=== PATIENT | female | born 1965 | race Caucasian/White ===

== ENCOUNTER 2017-11-21 23:02 | Emergency (ER) | payer MEDICARE, BC ==
[~2017-11-21] VITALS: Ht 162.6 cm; Wt 72.7 kg
[~2017-11-21 23:02] MED LIST: ALPR-624 PO; CYCL-1 PO; DIPH25CA6 PO; LISI40TA4 PO; SERT50TA PO
[2017-11-22] LABS: BASOPHILS % (AUTO) 0.5 % (0-1); EOSINOPHILS # (AUTO) 0.2 X10'3 (0-0.9); HEMATOCRIT 44.5 % (35.0-45.0); HEMOGLOBIN 15.4 g/dl (12.0-16.0); LYMPHOCYTES # (AUTO) 2.7 X10'3 (1.1-4.8); LYMPHOCYTES % (AUTO) 33.3 % (21-51); MEAN CORPUSCULAR HGB CONC 34.7 % (33.0-36.5); MEAN CORPUSCULAR VOLUME 92.3 FL (78-98); MEAN PLATELET VOLUME 8.3 FL (7.4-10.4); MONOCYTES # (AUTO) 0.5 X10'3 (0-0.9); MONOCYTES % (AUTO) 5.7 % (2-12); NEUTROPHILS # (AUTO) 4.8 X10'3 (1.8-7.7); NEUTROPHILS % (AUTO) 58.5 % (42-75); PLATELET COUNT 229 X10'3 (140-440); RED BLOOD COUNT 4.82 X10'6 (4.20-5.60); RED CELL DISTRIBUTION WIDTH 13.3 % (11.5-14.5); WHITE BLOOD COUNT 8.2 X10'3 (4.5-11.0)
[2017-11-22 00:16] LABS: ALANINE AMINOTRANSFERASE 29 U/L (12-78); ALBUMIN 3.9 G/DL (3.4-5.0); ALKALINE PHOSPHATASE 83 IU/L (46-116); ANION GAP 9 (8-16); ASPARTATE AMINO TRANSFERASE 19 U/L (10-37); BILIRUBIN,TOTAL 0.5 MG/DL (0.1-1.0); BLOOD UREA NITROGEN 16 MG/DL (7-18); BUN/CREATININE RATIO 20.3 (6.6-38.0); CALCIUM 8.8 MG/DL (8.5-10.1); CHLORIDE 107 MMOL/L (99-107); CREATININE 0.79 MG/DL (0.40-0.90); GLUCOSE 67 MG/DL (70-104); POTASSIUM 3.6 MMOL/L (3.5-5.1); SODIUM 145 MMOL/L (135-145); TOTAL CARBON DIOXIDE 28.6 MMOL/L (24-32); TOTAL PROTEIN 7.7 G/DL (6.4-8.2); eGFR 76 ML/MIN
[2017-11-22] MEDS ORDERED: ondansetron/PF 4mg/2ml inj IV ONE (00:45)
[2017-11-22] MEDS ORDERED: morphine 4 MG/ML inj SYRINge IV ONE (00:45)
[2017-11-22 01:02] LABS: ETHANOL 0.215 GM/DL (0.0-0.010)
[2017-11-22 02:32] VITALS: BP 127/60
== END 2017-11-22 02:34 | disposition home or self-care (01) ==
LOC: ER 23:02
DX: F10.129 Alcohol abuse with intoxication, unspecified (principal); R10.30 Lower abdominal pain, unspecified; F32.9 Major depressive disorder, single episode, unspecified; F17.200 Nicotine dependence, unspecified, uncomplicated; G89.29 Other chronic pain; I10 Essential (primary) hypertension; Z88.0 Allergy status to penicillin; Z79.899 Other long term (current) drug therapy; Z90.710 Acquired absence of both cervix and uterus; Y90.9 Presence of alcohol in blood, level not specified
CPT/HCPCS: 36415; 74176; 80053; 80320; 85025; 85610; 93005; 96374; 96375; 99285; J2270; J2405

== ENCOUNTER 2017-12-04 13:42 | Emergency (ER) | payer MEDICARE, OTHER ==
[~2017-12-04] VITALS: Ht 160 cm; Wt 69.4 kg
[2017-12-04 15:07] VITALS: BP 134/75
[2017-12-04] MEDS ORDERED: HYDROcodone/acetaminophen 10/325mg tab PO ONE (15:30)
[2017-12-04] MEDS ORDERED: HYDR-565 PO (15:49)
== END 2017-12-04 16:05 | disposition home or self-care (01) ==
LOC: ER 13:43
DX: S20.211A Contusion of right front wall of thorax, initial encounter (principal); I10 Essential (primary) hypertension; G89.29 Other chronic pain; Z88.0 Allergy status to penicillin; Z88.5 Allergy status to narcotic agent; Z79.899 Other long term (current) drug therapy; W22.8XXA Striking against or struck by other objects, initial encounter; Y93.89 Activity, other specified; Y92.89 Other specified places as the place of occurrence of the external cause; Y99.8 Other external cause status
CPT/HCPCS: 71045; 99284

== ENCOUNTER 2018-01-03 17:13 | Emergency (ER) | payer MEDICARE, OTHER ==
[~2018-01-03] VITALS: Ht 162.6 cm; Wt 54.5 kg
[~2018-01-03 17:13] MED LIST changes: +DICL50TA8 PO; +HYDR-565 PO
[2018-01-03] MEDS ORDERED: ketorolac trometh inj. 60 MG/2 ML VIAL IM ONE (18:05)
[2018-01-03 19:01] VITALS: BP 108/61
== END 2018-01-03 19:08 | disposition home or self-care (01) ==
LOC: ER 17:13
DX: S22.31XA Fracture of one rib, right side, initial encounter for closed fracture (principal); S20.211A Contusion of right front wall of thorax, initial encounter; I10 Essential (primary) hypertension; G89.29 Other chronic pain; Z88.0 Allergy status to penicillin; Z88.5 Allergy status to narcotic agent; Z79.899 Other long term (current) drug therapy; X58.XXXA Exposure to other specified factors, initial encounter; Y93.01 Activity, walking, marching and hiking; Y92.89 Other specified places as the place of occurrence of the external cause; Y99.8 Other external cause status
CPT/HCPCS: 71045; 96372; 99283; J1885

== ENCOUNTER 2018-01-25 02:21 | Emergency (ER) | payer MEDICARE, OTHER ==
[~2018-01-25] VITALS: Ht 162.6 cm; Wt 75.0 kg
[~2018-01-25 02:21] MED LIST changes: -HYDR-565 PO
[2018-01-25] MEDS ORDERED: ESCITALOPRAM 10MG TABLETS (02:43)
[2018-01-25] MEDS ORDERED: ALPRAZOLAM 2 MG (02:43)
[2018-01-25] MEDS ORDERED: HCTZ (02:43)
[2018-01-25] MEDS ORDERED: LISINOP (02:43)
[2018-01-25] MEDS ORDERED: ondansetron/PF 4mg/2ml inj IM ONE (03:00)
[2018-01-25] MEDS ORDERED: morphine 4 MG/ML inj SYRINge IM ONE (03:00)
[2018-01-25] MEDS ORDERED: ketorolac trometh inj. 60 MG/2 ML VIAL IM ONE (03:00)
[2018-01-25 04:06] VITALS: BP 95/60
== END 2018-01-25 04:09 | disposition home or self-care (01) ==
LOC: ER 02:22
DX: M62.830 Muscle spasm of back (principal); G89.29 Other chronic pain; I10 Essential (primary) hypertension; Z90.710 Acquired absence of both cervix and uterus; Z88.0 Allergy status to penicillin; Z88.5 Allergy status to narcotic agent; Z79.899 Other long term (current) drug therapy
CPT/HCPCS: 96372; 99284; J1885; J2270; J2405

== ENCOUNTER 2018-02-09 22:44 | Emergency (ER) | payer MEDICARE, OTHER ==
[~2018-02-09] VITALS: Ht 162.6 cm; Wt 60.5 kg
[~2018-02-09 22:44] MED LIST changes: +ALPRAZOLAM 2 MG; +ESCITALOPRAM 10MG TABLETS; +HCTZ; +LISINOP
[2018-02-09 22:59] VITALS: BP 100/47
[2018-02-09] MEDS ORDERED: orphenadrine citrate 60mg/2ml inj. IM ONE (23:40)
[2018-02-09] MEDS ORDERED: ketorolac trometh inj. 60 MG/2 ML VIAL IM ONE (23:40)
== END 2018-02-10 00:11 | disposition home or self-care (01) ==
LOC: ER 22:45
DX: S39.012D Strain of muscle, fascia and tendon of lower back, subsequent encounter (principal); M62.830 Muscle spasm of back; F10.129 Alcohol abuse with intoxication, unspecified; I10 Essential (primary) hypertension; G89.29 Other chronic pain; Z90.710 Acquired absence of both cervix and uterus; Z88.0 Allergy status to penicillin; Z88.5 Allergy status to narcotic agent; Z79.899 Other long term (current) drug therapy; Y90.9 Presence of alcohol in blood, level not specified; X58.XXXD Exposure to other specified factors, subsequent encounter
CPT/HCPCS: 96372; 99284; J1885; J2360

== ENCOUNTER 2018-02-12 20:05 | Emergency (ER) | payer MEDICARE, OTHER ==
[~2018-02-12] VITALS: Ht 167.6 cm; Wt 75.0 kg
[2018-02-12] MEDS ORDERED: NAPR-56 PO (21:08)
[2018-02-12] MEDS ORDERED: METH-360 PO (21:08)
[2018-02-12] MEDS ORDERED: ketorolac tromethamine 15mg/ml inj. IM ONE (21:20)
[2018-02-12 21:47] VITALS: BP 117/55
== END 2018-02-12 21:48 | disposition home or self-care (01) ==
LOC: ER 20:05
DX: M54.5 Low back pain (principal); G89.29 Other chronic pain; I10 Essential (primary) hypertension; Z90.710 Acquired absence of both cervix and uterus; Z88.0 Allergy status to penicillin; Z88.5 Allergy status to narcotic agent; Z79.899 Other long term (current) drug therapy
CPT/HCPCS: 96372; 99284; J1885

== ENCOUNTER 2018-03-05 16:32 | Emergency (ER) | payer MEDICARE, OTHER ==
[~2018-03-05] VITALS: Ht 162.6 cm; Wt 69.5 kg
[~2018-03-05 16:32] MED LIST changes: +METH-360 PO; +NAPR-56 PO
[2018-03-05] MEDS ORDERED: TRAM50TA2 PO (17:22)
[2018-03-05 18:02] VITALS: BP 97/58
== END 2018-03-05 18:04 | disposition home or self-care (01) ==
LOC: ER 16:33
DX: M54.9 Dorsalgia, unspecified (principal); G89.29 Other chronic pain; I10 Essential (primary) hypertension; Z90.710 Acquired absence of both cervix and uterus; Z88.0 Allergy status to penicillin; Z88.5 Allergy status to narcotic agent; Z79.899 Other long term (current) drug therapy
CPT/HCPCS: 72070; 99284

== ENCOUNTER 2018-05-26 23:47 | Emergency (ER) | payer MEDICARE, OTHER ==
[~2018-05-26] VITALS: Ht 165.1 cm; Wt 63.6 kg
[~2018-05-26 23:47] MED LIST changes: -NAPR-56 PO
[2018-05-27 00:56] LABS: BASOPHILS # (AUTO) 0.1 X10'3 (0-0.2); BASOPHILS % (AUTO) 0.6 % (0-1); EOSINOPHILS # (AUTO) 0.1 X10'3 (0-0.9); HEMATOCRIT 41.5 % (35.0-45.0); HEMOGLOBIN 14.5 g/dl (12.0-16.0); LYMPHOCYTES # (AUTO) 3.1 X10'3 (1.1-4.8); LYMPHOCYTES % (AUTO) 36.4 % (21-51); MEAN CORPUSCULAR HEMOGLOBIN 34.4 PG (27.0-31.0); MEAN CORPUSCULAR VOLUME 98.3 FL (78-98); MEAN PLATELET VOLUME 8.4 FL (7.4-10.4); MONOCYTES # (AUTO) 0.5 X10'3 (0-0.9); NEUTROPHILS # (AUTO) 4.8 X10'3 (1.8-7.7); PLATELET COUNT 247 X10'3 (140-440); RED BLOOD COUNT 4.22 X10'6 (4.20-5.60); RED CELL DISTRIBUTION WIDTH 12.8 % (11.5-14.5); WHITE BLOOD COUNT 8.6 X10'3 (4.5-11.0)
[2018-05-27 00:59] LABS: ALANINE AMINOTRANSFERASE 31 U/L (12-78); ALBUMIN 3.8 G/DL (3.4-5.0); ALBUMIN/GLOBULIN RATIO 1.1 (1.1-1.5); ALKALINE PHOSPHATASE 83 IU/L (46-116); ANION GAP 12 (8-16); ASPARTATE AMINO TRANSFERASE 21 U/L (10-37); BILIRUBIN,TOTAL 0.4 MG/DL (0.1-1.0); BLOOD UREA NITROGEN 16 MG/DL (7-18); BUN/CREATININE RATIO 14.4 (6.6-38.0); CALCIUM 8.6 MG/DL (8.5-10.1); CHLORIDE 99 MMOL/L (99-107); CREATININE 1.11 MG/DL (0.40-0.90); ETHANOL 0.193 GM/DL (0.0-0.010); GLUCOSE 82 MG/DL (70-104); POTASSIUM 3.5 MMOL/L (3.5-5.1); SODIUM 139 MMOL/L (135-145); TOTAL CARBON DIOXIDE 28.1 MMOL/L (24-32); TOTAL PROTEIN 7.2 G/DL (6.4-8.2); eGFR 51 ML/MIN
[2018-05-27 02:03] LABS: URINE HCG NEGATIVE (NEG)
[2018-05-27 02:15] LABS: URINE AMPHETAMINE SCREEN NEGATIVE (Neg); URINE BARBITUATE SCREEN NEGATIVE (Neg); URINE BENZODIAZEPINES SCREEN POSITIVE (Neg); URINE CANNABINOID SCREEN NEGATIVE (Neg); URINE COCAINE SCREEN NEGATIVE (Neg); URINE METHADONE SCREEN NEGATIVE (Neg); URINE OPIATE SCREEN NEGATIVE (Neg); URINE PHENCYCLIDINE SCREEN NEGATIVE (Neg)
[2018-05-27 06:43] VITALS: BP 104/65
== END 2018-05-27 09:28 | disposition home or self-care (01) ==
LOC: ER 23:47
DX: F32.9 Major depressive disorder, single episode, unspecified (principal); I10 Essential (primary) hypertension; G89.29 Other chronic pain; Z90.710 Acquired absence of both cervix and uterus; Z88.0 Allergy status to penicillin; Z88.5 Allergy status to narcotic agent; Z88.8 Allergy status to other drugs, medicaments and biological substances; Z79.899 Other long term (current) drug therapy
CPT/HCPCS: 36415; 80053; 80305; 80320; 81025; 85025; 99285

== ENCOUNTER 2018-08-04 20:48 | Emergency (ER) | payer MEDICARE, OTHER ==
[~2018-08-04] VITALS: Ht 162.6 cm; Wt 76.0 kg
[2018-08-04] MEDS ORDERED: acetaminophen 325mg tablet PO ONE (22:15)
[2018-08-04] MEDS ORDERED: ketorolac trometh inj. 60 MG/2 ML VIAL IM ONE (22:15)
[2018-08-04] MEDS ORDERED: diphenhydrAMINE 25mg capsule PO ONE (22:15)
[2018-08-04] MEDS ORDERED: proCHLORperazine 10mg tablet PO ONE (22:15)
[2018-08-04 22:39] VITALS: BP 159/89
== END 2018-08-04 22:40 | disposition home or self-care (01) ==
LOC: ER 20:48
DX: R51 Headache (principal); F32.9 Major depressive disorder, single episode, unspecified; R42 Dizziness and giddiness; G89.29 Other chronic pain; I10 Essential (primary) hypertension; Z90.710 Acquired absence of both cervix and uterus; Z88.0 Allergy status to penicillin; Z88.5 Allergy status to narcotic agent; Z88.8 Allergy status to other drugs, medicaments and biological substances; Z79.899 Other long term (current) drug therapy
CPT/HCPCS: 96372; 99284; J1885; Q0163; Q0164

== ENCOUNTER 2019-01-11 00:16 | Emergency (ER) | payer MEDICARE, MEDICAID | END 2019-01-11 01:45 | disposition home or self-care (01) | LOC: ER 00:16 | DX: F32.9 Major depressive disorder, single episode, unspecified (principal); F41.9 Anxiety disorder, unspecified; Z98.890 Other specified postprocedural states; Z79.899 Other long term (current) drug therapy; Z88.0 Allergy status to penicillin; Z88.6 Allergy status to analgesic agent; Z88.1 Allergy status to other antibiotic agents | CPT/HCPCS: 99284 ==

== ENCOUNTER 2019-05-25 18:27 | Emergency (ER) | payer MEDICARE, MEDICAID ==
[~2019-05-25] VITALS: Ht 180.3 cm; Wt 105.0 kg
[~2019-05-25 18:27] MED LIST changes: +DIPH25CA52 PO; -DIPH25CA6 PO
[2019-05-25] MEDS ORDERED: normal saline 1000ML IV soln IVB ONE (18:35)
[2019-05-25 19:00] LABS: BASOPHILS # (AUTO) 0.1 X10'3 (0-0.2); BASOPHILS % (AUTO) 0.7 % (0-1); EOSINOPHILS # (AUTO) 0.1 X10'3 (0-0.9); EOSINOPHILS % (AUTO) 0.7 % (0-6); HEMATOCRIT 47.4 % (35.0-45.0); HEMOGLOBIN 16.4 g/dl (12.0-16.0); LYMPHOCYTES # (AUTO) 2.6 X10'3 (1.1-4.8); MEAN CORPUSCULAR HEMOGLOBIN 34.2 PG (27.0-31.0); MEAN CORPUSCULAR HGB CONC 34.6 g/dL (33.0-36.5); MEAN PLATELET VOLUME 8.2 FL (7.4-10.4); MONOCYTES # (AUTO) 0.7 X10'3 (0-0.9); NEUTROPHILS # (AUTO) 4.8 X10'3 (1.8-7.7); NEUTROPHILS % (AUTO) 57.6 % (42-75); PLATELET COUNT 217 X10'3 (140-440); RED BLOOD COUNT 4.79 X10'6 (4.20-5.60); RED CELL DISTRIBUTION WIDTH 14.2 % (11.5-14.5); WHITE BLOOD COUNT 8.2 X10'3 (4.5-11.0)
--- NOTE | 2019-05-25 19:12 | NUR ---
TOLD PATIENT I CANNOT TELL IF SHE IS IN PAIN AND WOULD NOT BE ABLE TO HELP HER IF SHE DOESNT RESPOND TO MY QUESTIONING. PT IS NOW SIGHING AND "WAKING UP", GRABBING HEAD, AND STATING HER HEAD HURTS. WILL TELL MATTHIAS AMARO
[2019-05-25 19:25] LABS: ALANINE AMINOTRANSFERASE 126 U/L (12-78); ALBUMIN 3.9 G/DL (3.4-5.0); ALBUMIN/GLOBULIN RATIO 1.1 (1.1-1.5); ALKALINE PHOSPHATASE 84 IU/L (46-116); ANION GAP 10 (8-16); ASPARTATE AMINO TRANSFERASE 64 U/L (10-37); BILIRUBIN,TOTAL 0.7 MG/DL (0.1-1.0); BLOOD UREA NITROGEN 21 MG/DL (7-18); BUN/CREATININE RATIO 21.4 (6.6-38.0); CHLORIDE 102 MMOL/L (99-107); CREATININE 0.98 MG/DL (0.40-0.90); ETHANOL 0.278 GM/DL (0.0-0.010); GLUCOSE 87 MG/DL (70-104); POTASSIUM 3.9 MMOL/L (3.5-5.1); SODIUM 139 MMOL/L (135-145); TOTAL CARBON DIOXIDE 26.7 MMOL/L (24-32); TOTAL PROTEIN 7.4 G/DL (6.4-8.2); eGFR 59 ML/MIN
--- NOTE | 2019-05-25 19:27 | NUR ---
PT AMBULATED TO BATHROOM WITH MINIMAL ASSISTANCE. PT CRYING AND STATES "I AHVE CANCER AND IT CAME BACK IM SO SCARED I WANT TO GO HOME"
--- NOTE | 2019-05-25 20:10 | NUR ---
pt insisted on leaving ER. Pt a&ox4. Pt is intoxicated, she was escorted to taxi that will take her home. ama paperwork signed and on chart. pt understands risk of leaving even unto
[2019-05-25 20:12] VITALS: BP 122/67
== END 2019-05-25 20:13 | disposition left against medical advice (07) ==
LOC: ER 18:28
DX: S00.03XA Contusion of scalp, initial encounter (principal); S80.12XA Contusion of left lower leg, initial encounter; S80.11XA Contusion of right lower leg, initial encounter; F10.129 Alcohol abuse with intoxication, unspecified; I10 Essential (primary) hypertension; G89.29 Other chronic pain; F32.9 Major depressive disorder, single episode, unspecified; Z90.710 Acquired absence of both cervix and uterus; Z88.0 Allergy status to penicillin; Z88.5 Allergy status to narcotic agent; Z88.6 Allergy status to analgesic agent; Z79.899 Other long term (current) drug therapy; W18.39XA Other fall on same level, initial encounter; Y93.89 Activity, other specified; Y92.89 Other specified places as the place of occurrence of the external cause; Y99.8 Other external cause status
CPT/HCPCS: 36415; 70450; 71045; 72125; 80053; 80320; 85025; 93005; 99284; J7030

== ENCOUNTER 2019-06-16 12:48 | Emergency (ER) | payer MEDICARE, MEDICAID ==
[~2019-06-16] VITALS: Ht 162.6 cm; Wt 70.0 kg
--- NOTE | 2019-06-16 13:36 | NUR ---
PT STATES SHE IS "STARVING", PT WAS GIVEN A SANDWICH MILK, CHIPS, AND FRUIT.
[2019-06-16] MEDS ORDERED: LISI1TAB28 PO (13:45)
[2019-06-16] MEDS ORDERED: ESCI5TAB PO (13:45)
[2019-06-16] MEDS ORDERED: ALPR-13 PO (13:45)
--- NOTE | 2019-06-16 14:35 | NUR ---
Patient ate lunch and no emesis observed. Continue to monitor.
[2019-06-16 15:11] LABS: CLARITY,URINE CLEAR (Clear); COLOR,URINE YELLOW (Yellow); GLUCOSE, URINE NEGATIVE (Neg); KETONES,URINE NEGATIVE (Neg); LEUKOCYTE ESTERASE ,URINE NEGATIVE (Neg); NITRITES, URINE NEGATIVE (Neg); OCCULT BLOOD,URINE NEGATIVE (Neg); PROTEIN,URINE NEGATIVE (Neg); UROBILINOGEN,URINE 0.2 E.U/dL (0.2-1.0)
[2019-06-16 15:15] LABS: UA COLLECTION TYPE CLN CATCH MIDSTREAM
[2019-06-16 15:25] LABS: URINE AMPHETAMINE SCREEN NEGATIVE (Neg); URINE BARBITUATE SCREEN NEGATIVE (Neg); URINE BENZODIAZEPINES SCREEN NEGATIVE (Neg); URINE CANNABINOID SCREEN NEGATIVE (Neg); URINE COCAINE SCREEN NEGATIVE (Neg); URINE METHADONE SCREEN NEGATIVE (Neg); URINE OPIATE SCREEN NEGATIVE (Neg); URINE PHENCYCLIDINE SCREEN NEGATIVE (Neg)
[2019-06-16] MEDS ORDERED: ibuprofen tablet 400 MG TABLET PO ONE (16:05)
--- NOTE | 2019-06-16 16:25 | NUR ---
Blood being drawn. No distress observed. RN also gave patient her ibuprofen. Continue to monitor.
[2019-06-16 16:46] LABS: BASOPHILS % (AUTO) 0.4 % (0-1); EOSINOPHILS % (AUTO) 0.3 % (0-6); HEMATOCRIT 40.9 % (35.0-45.0); HEMOGLOBIN 14.3 g/dl (12.0-16.0); LYMPHOCYTES # (AUTO) 1.4 X10'3 (1.1-4.8); LYMPHOCYTES % (AUTO) 14.4 % (21-51); MEAN CORPUSCULAR HEMOGLOBIN 34.5 PG (27.0-31.0); MEAN CORPUSCULAR HGB CONC 34.9 g/dL (33.0-36.5); MEAN CORPUSCULAR VOLUME 98.8 FL (78-98); MEAN PLATELET VOLUME 8.3 FL (7.4-10.4); MONOCYTES % (AUTO) 10.5 % (2-12); NEUTROPHILS # (AUTO) 7.1 X10'3 (1.8-7.7); NEUTROPHILS % (AUTO) 74.4 % (42-75); PLATELET COUNT 213 X10'3 (140-440); RED BLOOD COUNT 4.14 X10'6 (4.20-5.60); WHITE BLOOD COUNT 9.6 X10'3 (4.5-11.0)
[2019-06-16 16:57] LABS: ALANINE AMINOTRANSFERASE 90 U/L (12-78); ALBUMIN 3.9 G/DL (3.4-5.0); ALBUMIN/GLOBULIN RATIO 1.1 (1.1-1.5); ALKALINE PHOSPHATASE 80 IU/L (46-116); ANION GAP 10 (8-16); ASPARTATE AMINO TRANSFERASE 56 U/L (10-37); BILIRUBIN,TOTAL 0.9 MG/DL (0.1-1.0); BLOOD UREA NITROGEN 23 MG/DL (7-18); BUN/CREATININE RATIO 21.1 (6.6-38.0); CALCIUM 8.5 MG/DL (8.5-10.1); CHLORIDE 101 MMOL/L (99-107); CREATININE 1.09 MG/DL (0.40-0.90); ETHANOL < 0.010 GM/DL (0.0-0.010); GLUCOSE 94 MG/DL (70-104); POTASSIUM 4.2 MMOL/L (3.5-5.1); SODIUM 136 MMOL/L (135-145); TOTAL CARBON DIOXIDE 24.8 MMOL/L (24-32); TOTAL PROTEIN 7.4 G/DL (6.4-8.2); eGFR 52 ML/MIN
[2019-06-16 17:40] VITALS: BP 131/60
[2019-06-16] MEDS ORDERED: LORazepam 1 MG tablet PO ONE (18:25)
--- NOTE | 2019-06-16 19:00 | NUR ---
Pt resting comfortably, respirations normal, no s/s of distress.
--- NOTE | 2019-06-16 19:52 | NUR ---
Pt reading in bed.
--- NOTE | 2019-06-16 19:53 | NUR ---
Client to be admitted to [facility] for Depression NOS per Dr Nguyen.
== END 2019-06-17 01:00 ==
LOC: ER 12:48
DX: F32.9 Major depressive disorder, single episode, unspecified (principal); F10.10 Alcohol abuse, uncomplicated; I10 Essential (primary) hypertension; G89.29 Other chronic pain; Z90.710 Acquired absence of both cervix and uterus; Z88.0 Allergy status to penicillin; Z88.5 Allergy status to narcotic agent; Z88.8 Allergy status to other drugs, medicaments and biological substances; Z79.899 Other long term (current) drug therapy
CPT/HCPCS: 36415; 80053; 80305; 80320; 81003; 85025; 99283; 99284

== ENCOUNTER 2019-06-16 22:30 | Inpatient (IN) | payer MEDICARE, MEDICAID ==
[~2019-06-16] VITALS: Ht 162.6 cm; Wt 70.0 kg
[~2019-06-16 22:30] MED LIST changes: +ALPR-13 PO; +ESCI5TAB PO; +LISI1TAB28 PO
[2019-06-16] MEDS ORDERED: magnesium hydroxide 30ml (MOM) UD suspension PO PRN (22:45)
[2019-06-16] MEDS ORDERED: loperamide 2mg capsule PO PRN (22:45)
[2019-06-16] MEDS ORDERED: mag hydrox/Alum hydrox/simeth 30ml oral suspension PO PRN (22:45)
[2019-06-16] MEDS ORDERED: acetaminophen 325mg tablet PO PRN ×2 (22:45)
[2019-06-17] VITALS (7 sets, daily range): BP systolic 97–135; BP diastolic 56–71
--- NOTE | 2019-06-17 02:34 | NUR ---
JAWBONE BREAKER ASSESSMENT: LEGAL HOLD: Voluntary REASON FOR ADMIT: Client BIB friend c/o depression and feelings of hopelessness. Stated, "I don't have anything to live for except my dog. I'd jump off a bridge if I wasn't such a chicken." Client reports drinking 1 to 2 bottles of wine per night. Uses wine as a sleep aid. Clients drinking has caused alienation from friends and family. Client lives alone and states, "It's hard". Client has been knocking on neighbors doors at night while intoxicated. The apartment complex has asked client to move in 30 days. Client has expressed desire for rehab. Client began drinking in 2014. Her last drink was 06/16/19. Client has been placed on the CIWA protocol Q 2 HR while awake. Client was pleasant and cooperative, she was tearful at times. Arrived on the unit at 01:15 via wheelchair accompanied by Madi Pierce.
[2019-06-17] MEDS: traZODone 50mg tablet PO PRN ×2 (02:39→20:32)
[2019-06-17] MEDS: LORazepam 1 MG tablet PO PRN ×3 (02:39→22:01)
[2019-06-17 07:17] LABS: CHOLESTEROL 204 MG/DL (0-200); HDL CHOLESTEROL 100 MG/DL (35-60); LDL CHOLESTEROL 101 MG/DL (50-100); TRIGLYCERIDES 53 MG/DL (20-135)
[2019-06-17] MEDS ORDERED: ESCITALOPRAM OXALATE 5 MG TABLET PO SCH (08:00)
[2019-06-17] MEDS ORDERED: lisinopril 20mg tablet PO SCH (08:00)
[2019-06-17] MEDS ORDERED: HYDROchlorothiazide 12.5mg capsule PO SCH (08:00)
[2019-06-17] MEDS ORDERED: ALPRAZolam 0.5mg tablet PO SCH (08:00)
[2019-06-17] MEDS: nicotine 21mg patch - 24 hr TD SCH (08:18)
[2019-06-17] MEDS ORDERED: FLU VACC QS2019-20(6MOS UP)/PF 60 MCG/0.5 ML SYRINGE IMVAC ONE (10:00)
[2019-06-17] MEDS ORDERED: pneumococcal 23-VAL P-sac vacc 25 mcg/0.5ml vial IMVAC ONE (10:00)
[2019-06-17] MEDS: folic acid 1mg tablet PO SCH (16:41)
[2019-06-17] MEDS: multivitamins, therapeutics tablet PO SCH (16:41)
--- NOTE | 2019-06-17 17:51 | NUR ---
Nursing Progress Note: Legal hold: Voluntary Client on voluntary status for depression, NOS Report received from [facility] Why are they here: Client BIB friend c/o depression and feelings of hopelessness. Stated, "I don't have anything to live for except my dog. I'd jump off a bridge if I wasn't such a chicken." Client reports drinking 1 to 2 bottles of wine per night. Uses wine as a sleep aid. Clients drinking has caused alienation from friends and family. Client lives alone and states, "It's hard". Client has been knocking on neighbors doors at night while intoxicated. The apartment complex has asked client to move in 30 days. Client has expressed desire for rehab. Client began drinking in 2014. Her last drink was 06/16/19. Assessment What has happened this shift: Pt sleeping at change of shift. Pt was admitted in the middle of the night so she did not get a lot of sleep. She slept for several hours after change of shift. CIWA assessment performed, order received to make CIWA assessments Q 4 hours while awake. CIWA scores ranged from 0-2. Pt was pleasant and cooperative with assessment. She was compliant with medication administration. She indicates that she wants to stop using alcohol and smoking. She reports depression and anxiety and states she is lonely. She has passive SI saying she does not want to live, but doesn't think she could do it. A protective factor is that she states she wants to live for her dog. Dr. Choi notified that pt reports having diarrhea and vomiting for seven months and that she reports a >50 lb weight loss since November. Pt's AM stool noted to be moderate size, brown, and formed. Pt given Ativan for anxiety at 1555 with good effect. S/I, H/I: Passive, no plan A/VH: Denies Sleep: Napped during the morning ADL's: Independent Group attendance: No Were meds taken: Yes Any med S/E: None noted or reported Mental Status Exam Appearance: Neat and clean Eye contact: Direct Behavior: Cooperative Speech: Normal rate and rhythm Mood: Depressed Affect: Constricted Thought process: Linear Thought Content: Wants to stop using alcohol and tobacco Cognition: A&O X4 Insight: Fair Judgment: Poor Interventions PRN's used: Ativan Therapeutic interventions: 1:1 assessment, active listening, therapeutic conversation, encouragement to perform self-care, encouragement to attend groups, medication administration/education/monitoring, Q 15 min safety checks. Restraints/seclusion/emergency medication: N/A Justification of Continued Inpatient Treatment: Pt continues to require stabilization and medication adjustments and a safe and supportive environment.
[2019-06-17] MEDS: hydrOXYzine 25 MG tablet PO PRN (19:24)
[2019-06-17] MEDS: thiamine 100mg tablet PO SCH (20:32)
--- NOTE | 2019-06-17 23:29 | NUR ---
Nursing Progress Note: Legal hold: Voluntary Client on voluntary status for depression, NOS Report received from [facility]as Why are they here: Client BIB friend c/o depression and feelings of hopelessness. Stated, "I don't have anything to live for except my dog. I'd jump off a bridge if I wasn't such a chicken." Client reports drinking 1 to 2 bottles of wine per night. Uses wine as a sleep aid. Clients drinking has caused alienation from friends and family. Client lives alone and states, "It's hard". Client has been knocking on neighbors doors at night while intoxicated. The apartment complex has asked client to move in 30 days. Client has expressed desire for rehab. Client began drinking in 2014. Her last drink was 06/16/19. Assessment What has happened this shift: Pt is watching TV in the rec room with peers at change of shift. She is observed interacting appropriately with others and smiles occasionally. PT approaches scientific writer and requests ativan because she is feeling "agitated." Pt thinks she is feeling this way because she has not had a cigarette. Pt given atarax, the ativan was too soon to give. Pt educated on atarax, she verbalized understanding. Pt expresses how thankful she is to be here and how "amazing all the staff and other patients have been so far." Pt is cooperative with 1:1 assessment and medication compliant. Pt makes good eye contact and thanks staff frequently. CIWA scheduled Q4 hours while awake . CIWA score is 2 at 2030. S/I, H/I: denies A/VH: Denies Sleep: see sleep assessment notation ADL's: Independent Group attendance: No Were meds taken: Yes Any med S/E: None noted or reported Mental Status Exam Appearance: Neat and clean Eye contact: Direct Behavior: Cooperative Speech: Normal rate and rhythm Mood: hopeful Affect: depressed with periods of brightening Thought process: Linear Thought Content: Wants to stop using alcohol and tobacco Cognition: A&O X4 Insight: Fair Judgment: Poor Interventions PRN's used: Ativan, atarax Therapeutic interventions: 1:1 assessment, active listening, therapeutic conversation, encouragement to perform self-care, encouragement to attend groups, medication administration/education/monitoring, Q 15 min safety checks. Restraints/seclusion/emergency medication: N/A Justification of Continued Inpatient Treatment: Pt continues to require stabilization and medication adjustments and a safe and supportive environment.
[2019-06-18 08:00] VITALS: BP 107/62
[2019-06-18] MEDS: nicotine 21mg patch - 24 hr TD SCH (08:00)
[2019-06-18] MEDS: lisinopril 20mg tablet PO SCH (09:02)
[2019-06-18] MEDS: thiamine 100mg tablet PO SCH ×2 (09:02→19:17)
[2019-06-18] MEDS: ESCITALOPRAM OXALATE 5 MG TABLET PO SCH (09:03)
[2019-06-18] MEDS: multivitamins, therapeutics tablet PO SCH (09:03)
[2019-06-18] MEDS: folic acid 1mg tablet PO SCH (09:03)
[2019-06-18] MEDS: LORazepam 1 MG tablet PO PRN ×2 (12:33→19:16)
--- NOTE | 2019-06-18 16:38 | NUR ---
Nursing Note: Notified MARIELOS Soliz that pt's CIWA score was 9. No increased order for Ativan at this time. Received order for Nicotine lozenges. Will continue to monitor.
[2019-06-18] MEDS: hydrOXYzine 25 MG tablet PO PRN ×2 (16:52→22:53)
[2019-06-18] MEDS: NICOTINE POLACRILEX 2 MG LOZENGE BC PRN (16:54)
--- NOTE | 2019-06-18 18:09 | NUR ---
Nursing Progress Note: Legal hold: Voluntary Client on voluntary status for depression, NOS Report received from [facility] Why are they here: Client BIB friend c/o depression and feelings of hopelessness. Stated, "I don't have anything to live for except my dog. I'd jump off a bridge if I wasn't such a chicken." Client reports drinking 1 to 2 bottles of wine per night. Uses wine as a sleep aid. Clients drinking has caused alienation from friends and family. Client lives alone and states, "It's hard". Client has been knocking on neighbors doors at night while intoxicated. The apartment complex has asked client to move in 30 days. Client has expressed desire for rehab. Client began drinking in 2014. Her last drink was 06/16/19. Assessment What has happened this shift: Pt sleeping at change of shift. Pt complaint with medication administration and cooperative with assessment. Pt said that she did not sleep well and she woke up drenched from sweat. She reported lower back, neck, and shoulder pain, but did not want pain medication. Pt did not report any diarrhea today. During the assessment, pt shared her depression has decreased and she enjoys being around people and getting help. She denies SI, and A/V H. CIWAs performed [id number]. Pt's CIWA score increased from 3-9 during the day. Dolly Toña notified of CIWA scores. Pt reports increased anxiety and crying. Pt given Ativan and Atarax for increased anxiety. Pt refused nicotine patch. Nicotine lozenge given for cravings. S/I, H/I: Denies A/VH: Denies Sleep: Napped during the morning ADL's: Independent Group attendance: Yes Were meds taken: Yes Any med S/E: None noted or reported Mental Status Exam Appearance: Neat and clean Eye contact: Direct Behavior: Cooperative Speech: Normal rate and rhythm Mood: Anxious Affect: Constricted Thought process: Linear Thought Content: Anxious about how she was feeling Cognition: A&O X4 Insight: Fair Judgment: Poor Interventions PRN's used: Ativan, Atarax, Nicotine lozenge Therapeutic interventions: 1:1 assessment, active listening, therapeutic conversation, encouragement to perform self-care, encouragement to attend groups, medication administration/education/monitoring, Q 15 min safety checks. Restraints/seclusion/emergency medication: N/A Justification of Continued Inpatient Treatment: Pt continues to require stabilization and medication adjustments and a safe and supportive environment.
[2019-06-18 19:52] VITALS: BP 93/49
[2019-06-18] MEDS: traZODone 50mg tablet PO PRN (20:35)
--- NOTE | 2019-06-18 22:15 | NUR ---
Nursing Progress Note: Legal hold: Voluntary Client on voluntary status for depression, NOS Report received from [facility]ler Why are they here: Client BIB friend c/o depression and feelings of hopelessness. Stated, "I don't have anything to live for except my dog. I'd jump off a bridge if I wasn't such a chicken." Client reports drinking 1 to 2 bottles of wine per night. Uses wine as a sleep aid. Clients drinking has caused alienation from friends and family. Client lives alone and states, "It's hard". Client has been knocking on neighbors doors at night while intoxicated. The apartment complex has asked client to move in 30 days. Client has expressed desire for rehab. Client began drinking in 2014. Her last drink was 06/16/19. Assessment What has happened this shift: Pt is watching TV in the rec room with peers at change of shift. She was friendly and appeared to be interacting appropriately with staff and other pt's. pt was cooperative with 1:1, immediately asking for a ativan for anxiety. pt denies si/hi and a/vh, but reports feeling depressed and a desire to quit drinking. She stated that drinking allowed her to calm her stress and emotions and now that she isn't drinking, "it's all coming back up." ciwa score 2 at 1830. S/I, H/I: denies A/VH: Denies Sleep: see sleep assessment ADL's: Independent Group attendance: No Were meds taken: Yes Any med S/E: None noted or reported Mental Status Exam Appearance: Neat and clean Eye contact: Direct Behavior: Cooperative Speech: Normal rate and rhythm Mood: hopeful Affect: depressed with periods of brightening Thought process: Linear Thought Content: Wants to stop using alcohol and tobacco Cognition: A&O X4 Insight: Fair Judgment: Poor Interventions PRN's used: Ativan, atarax Therapeutic interventions: 1:1 assessment, active listening, therapeutic conversation, encouragement to perform self-care, encouragement to attend groups, medication administration/education/monitoring, Q 15 min safety checks. Restraints/seclusion/emergency medication: N/A Justification of Continued Inpatient Treatment: Pt continues to require stabilization and medication adjustments and a safe and supportive environment.
[2019-06-19 08:00] VITALS: BP 116/72
[2019-06-19] MEDS: lisinopril 20mg tablet PO SCH (08:00)
[2019-06-19] MEDS: multivitamins, therapeutics tablet PO SCH (08:11)
[2019-06-19] MEDS: ESCITALOPRAM OXALATE 5 MG TABLET PO SCH (08:11)
[2019-06-19] MEDS: nicotine 21mg patch - 24 hr TD SCH (08:12)
[2019-06-19] MEDS: thiamine 100mg tablet PO SCH ×2 (08:13→20:20)
[2019-06-19] MEDS: folic acid 1mg tablet PO SCH (08:13)
[2019-06-19] MEDS: hydrOXYzine 25 MG tablet PO PRN ×2 (12:42→19:16)
[2019-06-19] MEDS: LORazepam 1 MG tablet PO PRN ×2 (16:22→23:15)
--- NOTE | 2019-06-19 16:49 | NUR ---
Nursing Progress Note: Legal hold: Voluntary Client on voluntary status for depression, NOS Report received from [facility] Why are they here: Client BIB friend c/o depression and feelings of hopelessness. Stated, "I don't have anything to live for except my dog. I'd jump off a bridge if I wasn't such a chicken." Client reports drinking 1 to 2 bottles of wine per night. Uses wine as a sleep aid. Clients drinking has caused alienation from friends and family. Client lives alone and states, "It's hard". Client has been knocking on neighbors doors at night while intoxicated. The apartment complex has asked client to move in 30 days. Client has expressed desire for rehab. Client began drinking in 2014. Her last drink was 06/16/19. Assessment What has happened this shift: Pt sleeping at change of shift and up for breakfast. Patient took her medication without any problems. Patient has been social today, going to group and doing a puzzle in the Community Room. Patient was given Atarax x 1 today and Ativan x 1 in late afternoon for anxiety. Patient denies SI and is having some depression but is around people. Patient lives alone and does not get this kind of interaction in her daily life. Patient has had diarrhea several times today but didn't report it until RN asked patient if she had diarrhea. Patient believes she will be free of her addiction in 2 weeks and does not want to go to an inpatient or outpatient unit. Patient has to find an apartment and move out soon after getting discharged from here. Patient misses her dog and states he is her inbound sales representative. Patient appears to be doing better. S/I, H/I: Denies A/VH: Denies Sleep: Patient took a couple of naps. ADL's: Independent Group attendance: Yes, both Were meds taken: Yes Any med S/E: None noted or reported Mental Status Exam Appearance: Neat and clean Eye contact: Direct Behavior: Cooperative Speech: Normal rate and rhythm Mood: Depressed Affect: Flat Thought process: Linear Thought Content: Looking forward to being ETOH free Cognition: A&O X4 Insight: Poor Judgment: Poor Interventions PRN's used: Ativan, Atarax, Therapeutic interventions: 1:1 assessment, active listening, therapeutic conversation, encouragement to perform self-care, encouragement to attend groups, medication administration/education/monitoring, Q 15 min safety checks. Restraints/seclusion/emergency medication: N/A Justification of Continued Inpatient Treatment: Pt continues to require stabilization and medication adjustments and a safe and supportive environment.
[2019-06-19 20:00] VITALS: BP 109/63
[2019-06-19] MEDS: traZODone 50mg tablet PO PRN (21:37)
--- NOTE | 2019-06-20 00:43 | NUR ---
Nursing Progress Note: Legal hold: Voluntary Client on voluntary status for depression, NOS Report received from [facility] Why are they here: Client BIB friend c/o depression and feelings of hopelessness. Stated, "I don't have anything to live for except my dog. I'd jump off a bridge if I wasn't such a chicken." Client reports drinking 1 to 2 bottles of wine per night. Uses wine as a sleep aid. Clients drinking has caused alienation from friends and family. Client lives alone and states, "It's hard". Client has been knocking on neighbors doors at night while intoxicated. The apartment complex has asked client to move in 30 days. Client has expressed desire for rehab. Client began drinking in 2014. Her last drink was 06/16/19. Assessment What has happened this shift: Pt in group room at change of shift socializing with other patients. pt reports ongoing depression and is currently fixated on being told that she needs a colonoscopy. pt reports having diarrhea for 7 months and is hoping to have her colonoscopy while admitted to [facility], as she believes she is unable to do it by herself when at home. pt is enjoying her stay here, especially the socializing and feeling, "like she can help other people." pt had trouble sleeping and was given ativan to help. pt asked for her nicotine patch to be removed. S/I, H/I: Denies A/VH: Denies Sleep: having insomnia, but asleep now ADL's: Independent Group attendance: snack Were meds taken: Yes Any med S/E: None noted or reported Mental Status Exam Appearance: Neat and clean Eye contact: Direct Behavior: Cooperative Speech: Normal rate and rhythm Mood: Depressed Affect: Flat Thought process: Linear Thought Content: upcoming colonoscopy Cognition: A&O X4 Insight: fair Judgment: Poor Interventions PRN's used: Ativan, Atarax, Therapeutic interventions: 1:1 assessment, active listening, therapeutic conversation, encouragement to perform self-care, encouragement to attend groups, medication administration/education/monitoring, Q 15 min safety checks. Restraints/seclusion/emergency medication: N/A Justification of Continued Inpatient Treatment: Pt continues to require stabilization and medication adjustments and a safe and supportive environment.
[2019-06-20 08:00] VITALS: BP 106/65
[2019-06-20] MEDS: lisinopril 20mg tablet PO SCH (08:00)
[2019-06-20] MEDS: ESCITALOPRAM OXALATE 5 MG TABLET PO SCH (08:39)
[2019-06-20] MEDS: folic acid 1mg tablet PO SCH (08:39)
[2019-06-20] MEDS: thiamine 100mg tablet PO SCH (08:39)
[2019-06-20] MEDS: multivitamins, therapeutics tablet PO SCH (08:39)
[2019-06-20] MEDS: nicotine 21mg patch - 24 hr TD SCH (08:40)
[2019-06-20] MEDS: hydrOXYzine 25 MG tablet PO PRN ×2 (11:49→18:03)
--- NOTE | 2019-06-20 12:24 | NUR ---
Initial: Pt admit w/ depression PO 75-100% regular diet meeting needs. LBM 06/19. No nutrition concerns at this time. Will continue to monitor. Rec: 1. continue regular diet 2. routine bowel care Addendum: 06/20/19 at [address] Amended: Links added.
[2019-06-20] MEDS: LORazepam 1 MG tablet PO PRN (13:24)
[2019-06-20] MEDS ORDERED: NICO-687 TD (15:50)
[2019-06-20] MEDS ORDERED: HYDR-3686 PO (15:50)
[2019-06-20] MEDS ORDERED: ESCI5TAB PO (15:50)
[2019-06-20] MEDS ORDERED: TRAZ-251 PO (15:50)
[2019-06-20] MEDS ORDERED: LISI1TAB28 PO (15:50)
[2019-06-20] MEDS: NICOTINE POLACRILEX 2 MG LOZENGE BC PRN (18:03)
--- NOTE | 2019-06-20 18:20 | NUR ---
Discharge Patient going home by [place]. RN gave patient d/c instructions. RN called in RXs to [facility]. Patient had Nicotine replacement patches to assist patient getting off of cigarettes. Patient denies suicidal ideation. Patient felt she found herself again here. RN gave patient info on volunteering at [facility]. Jeannie Moran walked patient downstairs with all her belongings including valuables. No distress noted.
== END 2019-06-20 18:20 | disposition home or self-care (01) | DRG 885 ==
LOC: ADULT MH 22:30
PROVIDERS: ADMIT Psychiatry & Neurology Psychiatry; ATTEND Psychiatry & Neurology Psychiatry
PROC: 3E02340 Introduction of Influenza Vaccine into Muscle, Percutaneous Approach (ICD-10-PCS; principal; 2019-06-17)
PROC: 3E0234Z Introduction of Serum, Toxoid and Vaccine into Muscle, Percutaneous Approach (ICD-10-PCS; 2019-06-17)
DX: F33.1 Major depressive disorder, recurrent, moderate (principal); R45.851 Suicidal ideations; F17.210 Nicotine dependence, cigarettes, uncomplicated; F41.0 Panic disorder [episodic paroxysmal anxiety]; F43.10 Post-traumatic stress disorder, unspecified; G47.30 Sleep apnea, unspecified; F41.9 Anxiety disorder, unspecified; G47.00 Insomnia, unspecified; F10.10 Alcohol abuse, uncomplicated; M54.9 Dorsalgia, unspecified; G89.29 Other chronic pain; I10 Essential (primary) hypertension; Z23 Encounter for immunization; Z88.0 Allergy status to penicillin; Z88.5 Allergy status to narcotic agent; Z91.048 Other nonmedicinal substance allergy status; Z79.899 Other long term (current) drug therapy; Z90.710 Acquired absence of both cervix and uterus
CPT/HCPCS: 36415; 80053; 80061; 80305; 80320; 81003; 83036; 85025; 87081; 90732; Z7610

== ENCOUNTER 2019-07-11 04:07 | Emergency (ER) | payer MEDICAID, MEDICARE ==
[~2019-07-11] VITALS: Ht 162.6 cm; Wt 69.0 kg
[~2019-07-11 04:07] MED LIST changes: -ALPR-13 PO; -ALPR-624 PO; -ALPRAZOLAM 2 MG; -CYCL-1 PO; -DICL50TA8 PO; -DIPH25CA52 PO; -ESCITALOPRAM 10MG TABLETS; -HCTZ; +HYDR-3686 PO; -LISI40TA4 PO; -LISINOP; -METH-360 PO; +NICO-687 TD; -SERT50TA PO; +TRAZ-251 PO
[2019-07-11] MEDS ORDERED: LORazepam 2 mg/ml vial IV ONE (04:35)
[2019-07-11] MEDS ORDERED: normal saline 1000ml 1,000 ML IV ONE (04:35)
[2019-07-11 04:56] LABS: BASOPHILS # (AUTO) 0.1 X10'3 (0-0.2); BASOPHILS % (AUTO) 0.8 % (0-1); EOSINOPHILS % (AUTO) 0.4 % (0-6); HEMATOCRIT 35.9 % (35.0-45.0); HEMOGLOBIN 12.7 g/dl (12.0-16.0); LYMPHOCYTES # (AUTO) 1.5 X10'3 (1.1-4.8); LYMPHOCYTES % (AUTO) 21.7 % (21-51); MEAN CORPUSCULAR HEMOGLOBIN 35.2 PG (27.0-31.0); MEAN CORPUSCULAR HGB CONC 35.5 g/dL (33.0-36.5); MEAN PLATELET VOLUME 7.5 FL (7.4-10.4); MONOCYTES # (AUTO) 0.7 X10'3 (0-0.9); MONOCYTES % (AUTO) 9.9 % (2-12); NEUTROPHILS # (AUTO) 4.6 X10'3 (1.8-7.7); NEUTROPHILS % (AUTO) 67.2 % (42-75); PLATELET COUNT 216 X10'3 (140-440); RED BLOOD COUNT 3.63 X10'6 (4.20-5.60); RED CELL DISTRIBUTION WIDTH 13.4 % (11.5-14.5); WHITE BLOOD COUNT 6.9 X10'3 (4.5-11.0)
[2019-07-11 05:00] LABS: CLARITY,URINE CLEAR (Clear); COLOR,URINE YELLOW (Yellow); GLUCOSE, URINE NEGATIVE (Neg); KETONES,URINE 15 mg/dl (Neg); LEUKOCYTE ESTERASE ,URINE NEGATIVE (Neg); NITRITES, URINE NEGATIVE (Neg); OCCULT BLOOD,URINE NEGATIVE (Neg); PH,URINE 5.5 (4.8-8.0); PROTEIN,URINE TRACE mg/dl (Neg)
[2019-07-11 05:03] LABS: UA COLLECTION TYPE CLN CATCH MIDSTREAM
[2019-07-11 05:05] LABS: URINE AMPHETAMINE SCREEN NEGATIVE (Neg); URINE BARBITUATE SCREEN NEGATIVE (Neg); URINE BENZODIAZEPINES SCREEN NEGATIVE (Neg); URINE CANNABINOID SCREEN NEGATIVE (Neg); URINE COCAINE SCREEN NEGATIVE (Neg); URINE METHADONE SCREEN NEGATIVE (Neg); URINE OPIATE SCREEN NEGATIVE (Neg); URINE PHENCYCLIDINE SCREEN NEGATIVE (Neg)
[2019-07-11 05:07] LABS: BACTERIA,URINE FEW /HPF (Neg); MUCUS STRANDS NONE SEEN /LPF (Neg); RBC,URINE NONE SEEN /HPF (0-2); SQUAMOUS EPITHELIAL CELL,UR MODERATE /LPF (FEW); WBC,URINE NONE SEEN /HPF (0-4)
[2019-07-11 05:09] LABS: ALANINE AMINOTRANSFERASE 50 U/L (12-78); ALBUMIN 3.5 G/DL (3.4-5.0); ALBUMIN/GLOBULIN RATIO 1.1 (1.1-1.5); ALKALINE PHOSPHATASE 87 IU/L (46-116); ANION GAP 15 (8-16); ASPARTATE AMINO TRANSFERASE 50 U/L (10-37); BILIRUBIN,TOTAL 0.9 MG/DL (0.1-1.0); BLOOD UREA NITROGEN 11 MG/DL (7-18); BUN/CREATININE RATIO 14.7 (6.6-38.0); CALCIUM 8.6 MG/DL (8.5-10.1); CHLORIDE 102 MMOL/L (99-107); CREATININE 0.75 MG/DL (0.40-0.90); ETHANOL 0.061 GM/DL (0.0-0.010); GLUCOSE 90 MG/DL (70-104); POTASSIUM 3.3 MMOL/L (3.5-5.1); SODIUM 138 MMOL/L (135-145); TOTAL CARBON DIOXIDE 21.2 MMOL/L (24-32); TOTAL PROTEIN 6.6 G/DL (6.4-8.2); eGFR 80 ML/MIN
[2019-07-11] MEDS ORDERED: potassium Cl 20 mEq SR tablet PO STA (05:25)
--- NOTE | 2019-07-11 06:26 | NUR ---
PACKET FAXED TO [facility]
[2019-07-11] MEDS ORDERED: HYDR-3686 PO (08:13)
[2019-07-11] MEDS ORDERED: ESCI20TA PO (08:22)
[2019-07-11] MEDS ORDERED: TRAZ-251 PO (08:23)
--- NOTE | 2019-07-11 08:35 | NUR ---
pt walked back from the main ER to ER overflow room 21. pt calm and cooperative. No needs at this time.
[2019-07-11] MEDS ORDERED: NICO-687 TD (10:15)
[2019-07-11] MEDS ORDERED: LISI-600 PO (10:22)
[2019-07-11] MEDS ORDERED: lisinopril 20mg tablet PO SCH (10:36)
[2019-07-11] MEDS ORDERED: citalopram 20mg tablet PO SCH (10:36)
[2019-07-11] MEDS ORDERED: nicotine 21mg patch - 24 hr TD SCH (10:37)
--- NOTE | 2019-07-11 10:38 | NUR ---
med rec signed by and faxed to pharmacy.
--- NOTE | 2019-07-11 11:02 | NUR ---
pt states her brother and her sister are allowed to request info and medical personel is able to give info to them about pts medical condition/care. Darin Swenson - [phone] Alexa - [phone]
--- NOTE | 2019-07-11 11:57 | NUR ---
pt c/o feelign shakey and very anxious. States she's feelign like she may be withdrawing from ETOH. States she drinks a bottle of wine everyday. Last drink was yesterday (07/10) around 1100. Repeatedly asking for anxiety meds. Takes scheduled Atarax at home. Dr. Martinez did not continue Atarax from pts med rec. MD aware pts been asking for anxiety meds. MD stated he would come to see pt and evaluate
--- NOTE | 2019-07-11 13:17 | NUR ---
pt sitting up in bed eating lunch. Calm and cooperative.
[2019-07-11] MEDS ORDERED: chlordiazePOXIDE 25mg capsule PO PRN (14:30)
[2019-07-11] MEDS ORDERED: chlordiazePOXIDE 25mg capsule PO ONE (14:30)
--- NOTE | 2019-07-11 16:15 | NUR ---
pt talking to [facility]
[2019-07-11 17:00] VITALS: BP 149/78
--- NOTE | 2019-07-11 17:50 | NUR ---
pt discharged home with all of her belongings. Pt verbalized understanding of discharge instructions. pt picker / packer by neighbor for discharge home.
[2019-07-11] MEDS ORDERED: traZODone 50mg tablet PO SCH (21:00)
== END 2019-07-11 17:54 | disposition home or self-care (01) ==
LOC: ER 04:07
DX: R45.851 Suicidal ideations (principal); R42 Dizziness and giddiness; I10 Essential (primary) hypertension; G89.29 Other chronic pain; F10.99 Alcohol use, unspecified with unspecified alcohol-induced disorder; Z90.710 Acquired absence of both cervix and uterus; Z60.2 Problems related to living alone; Z88.0 Allergy status to penicillin; Z88.5 Allergy status to narcotic agent; Z91.09 Other allergy status, other than to drugs and biological substances; Z79.899 Other long term (current) drug therapy; Y90.9 Presence of alcohol in blood, level not specified
CPT/HCPCS: 36415; 80053; 80305; 80320; 81001; 82948; 85025; 96361; 96374; 99284; J2060; J7030